=== PATIENT | female | born 1995 | race African-American/Black ===

== ENCOUNTER 2016-05-05 20:40 | Emergency (ER) | payer MEDICAID ==
[2016-05-05] MEDS ORDERED: HYDROcod/ACETAM 5/325 MG TABLET PO STA (22:41)
[2016-05-05] MEDS ORDERED: HYDROcod/ACETAM 5/325 MG TABLET ONE (23:00)
[2016-05-06] MEDS ORDERED: HYDROcod/ACETAM 5/325 MG TABLET PO STA (01:25)
[2016-05-06] MEDS ORDERED: HYDROcod/ACETAM 5/325 MG TABLET ONE (01:27)
== END 2016-05-06 01:44 | disposition home or self-care (01) ==
DX: R10.2 Pelvic and perineal pain (principal)
CPT/HCPCS: 76830; 76856; 81001; 81025; 93976; 99283; 99284; A9270

== ENCOUNTER 2016-06-30 13:45 | Outpatient (CLI) | payer MEDICAID | END 2016-06-30 14:00 | disposition home or self-care (01) | DX: Z13.9 Encounter for screening, unspecified (principal) ==

== ENCOUNTER 2016-06-30 14:51 | Outpatient (CLI) | payer MEDICAID | END 2016-06-30 14:52 | disposition home or self-care (01) | DX: Z13.9 Encounter for screening, unspecified (principal) ==

== ENCOUNTER 2016-06-30 20:49 | Outpatient (CLI) | payer MEDICAID | END 2016-06-30 20:50 | disposition EMS.NT | DX: Z03.89 Encounter for observation for other suspected diseases and conditions ruled out (principal); Y04.8XXA Assault by other bodily force, initial encounter ==

== ENCOUNTER 2016-07-30 12:19 | Emergency (ER) | payer MEDICAID ==
[2016-07-30] MEDS ORDERED: KETOROLAC 60 MG/2 ML VIAL IVP STA (13:01)
[2016-07-30] MEDS ORDERED: ONDANSETRON 4 MG/2 ML VIAL IVP STA (13:01)
[2016-07-30] MEDS ORDERED: KETOROLAC 30 MG/ML VIAL ONE (13:06)
[2016-07-30] MEDS ORDERED: ONDANSETRON 4 MG/2 ML VIAL ONE (13:06)
== END 2016-07-30 13:54 | disposition home or self-care (01) ==
DX: N92.0 Excessive and frequent menstruation with regular cycle (principal); R03.0 Elevated blood-pressure reading, without diagnosis of hypertension

== ENCOUNTER 2016-08-13 09:37 | Outpatient (CLI) | payer MEDICAID ==
--- NOTE | 2016-08-13 14:46 | Ultrasound Report ---
PELVIC ULTRASOUND: 08/13/2016 CLINICAL HISTORY: This is a 21-year-old female who has extensive vaginal bleeding. COMPARISON: 05/05/2016. TECHNIQUE: Transabdominal pelvic ultrasound performed for global evaluation. Transvaginal pelvic ultr asound performed for detailed evaluation. Real-time scanning performed and static images obtained. FINDINGS: The uterus measures 9.1 cm by 3.5 cm by 5.1 cm for a volume of 84.9 cubic centimeters. The endometrial cavity has a diameter of 6.7 mm. It appears normal on ultrasound. The uterus shows no significant abnormality. The right ovary measures 2.1 cm by 2.8 cm by 2.2 cm. The volume is 9.34 cubic centimeters. Within the right ovary, is an 1.6 cm by 1.2 cm by 2.3 cm mildly complex mass that may represent a corpus luteum cyst considering the adjacent ring of vascularity. The left ovary measures 3 cm by 2.4 cm by 2 cm for a volume of 7.5 cubic centimeters. Within the left ovary, is a small cyst measuring 1 cm by 0.7 cm by 0.9 cm. As compared to preceding exam dated 04/25/2016, no significant change is noted. IMPRESSION: 1. NORMAL UTERUS INCLUDING THE CENTRAL INTRAUTERINE CAVITY. 2. RIGHT OVARY DEMONSTRATES A SMALL COMPLEX CYST MEASURING 1.6 CM BY 1.2 CM BY 2.3 CM. THIS MAY A DEG ENERATING CORPUS LUTEUM CYST OR A DOMINANT FOLLICLE. 3. AN 1 CM BY 0.7 CM BY 0.9 CM BENIGN SIMPLE CYST IS NOTED IN THE LEFT OVARY. JOB #: [id number] EXT JOB #:[id number]
== END 2016-08-13 09:38 | disposition home or self-care (01) ==
LOC: DI 09:37
PROVIDERS: ATTEND Obstetrics & Gynecology
DX: N92.0 Excessive and frequent menstruation with regular cycle (principal); N83.291 Other ovarian cyst, right side; N83.292 Other ovarian cyst, left side
CPT/HCPCS: 76830; 76856

== ENCOUNTER 2016-08-27 10:23 | Emergency (ER) | payer MEDICAID ==
[2016-08-27 11:02] LABS: BILIRUBIN,URINE NEGATIVE (NEGATIVE); PH,URINE 6.5 PH (5.0-7.5)
--- NOTE | 2016-08-27 11:06 | ED Physician Documentation ---
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 Miller. She did not start on control and she had a + test this past week. This morning she developed spotting and back pain. Review of Systems Constitutional: denies: Fever, Chills Eyes: denies: Decreased vision Ears: denies: Ear pain Nose: denies: Congestion Throat: denies: Sore throat Respiratory: denies: Cough GI: reports: Nausea. denies: Abdominal Pain : denies: Dysuria, Frequency Skin: denies: Rash Musculoskeletal: reports: Back pain. denies: Neck pain PD PAST MEDICAL HISTORY - Past Medical History Respiratory: Asthma Musculoskeletal: Chronic back pain - Past Surgical History Past Surgical History: Yes /[employer]IP'[employer]OT: Other HEENT: Tonsil/Adenoidectomy - Present Medications Home Medications: Ambulatory Orders Medication Instructions Recorded Confirmed Estradiol Valerate/Dienogest 1 each PO BID #28 tablet 07/30/16 [Natazia 28 Tablet] Ibuprofen [Motrin] 800 mg PO Q8H PRN #30 tablet 07/30/16 Ondansetron HCl [Zofran] 4 mg PO Q6H PRN #10 tablet 07/30/16 - Allergies Allergies/Adverse Reactions: Allergies Allergy/AdvReac Type Severity Reaction Status Date / Time tramadol Allergy Intermediate Respiratory Verified 05/05/16 20:46 avocado [Avocado] Allergy Itching Verified 05/05/16 20:46 hydromorphone HCl * AdvReac made pt Verified 05/05/16 20:46 [From Dilaudid] not feel right - Social History Does the pt smoke?: No Smoking Status: Never smoker Does the pt drink ETOH?: No Does the pt have substance abuse?: No - Immunizations Immunizations are current?: Yes - POLST Patient has POLST: No PD ED PE NORMAL - Vitals Vital signs reviewed: Yes (hypertensive) - General General: Alert and oriented X 3, No acute distress, Well developed/nourished - HEENT HEENT: Atraumatic, PERRL - Respiratory Respiratory: No respiratory distress - Abdomen Abdomen: Soft, Non tender - Back Back: No CVA TTP, No spinal TTP - Derm Derm: Normal color, Warm and dry - Extremities Extremities: No deformity, No edema - Neuro Neuro: No motor deficit, No sensory deficit - Psych Psych: Normal mood, Normal affect Results - Vitals Vitals: Vital Signs - 24 hr 08/27/16 08/27/16 08/27/16 10:30 14:02 14:48 Temperature 36.6 C 36.6 C 36.6 C Heart Rate 92 64 66 Respiratory 16 18 18 Rate Blood Pressure 142/94 H 133/71 H 128/72 O2 Saturation 100 100 100 Oxygen O2 Source Room air - Labs Labs: Laboratory Tests 08/27/16 08/27/16 10:37 11:25 HCG, Quant 44.87 Urine Color YELLOW Urine Clarity CLEAR Urine pH 6.5 Ur Specific [place] 1.015 Urine Protein NEGATIVE Urine Glucose (UA) NEGATIVE Urine Ketones NEGATIVE Urine Occult Blood NEGATIVE Urine Nitrite NEGATIVE Urine Bilirubin NEGATIVE Urine Urobilinogen 0.2 (NORMAL) Ur Leukocyte Esterase NEGATIVE Ur Microscopic Review NOT INDICATED Urine Culture Comments NOT INDICATED Urine HCG, Qual POSITIVE - Rads (name of study) pelvic ultrasound Radiology: Prelim report reviewed (Impression: Normal pelvic ultrasound no IUP or extrauterine gestations seen no free fluid.), EMP read indepedently, See rad report Procedures - Bedside sono Bedside sono by EMP: with the use of bedside ultrasound there is no visualized IUP. PD MEDICAL DECISION MAKING - ED course Complexity details: reviewed results, re-evaluated patient, considered differential, d/w patient ED course: 21 y/o female with early has no visible IUP with a quant of 44.5 and this is expected. She will follow up with Dr. Miller in 2 days as planned. Departure - Departure Disposition: 01 Home, Self Care Clinical Impression: Early stage of Instructions: ED Abdominal Pain Rule Out Ectopic Follow-Up: Nancy Miller DO [Provider Admit Priv/Credential] - Comments: Today in the ED we were not able to see a gestational sac. You will need a repeat blood test in 2 days and follow up ultrasound eventually. Follow up with Dr. Miller. Today in the Emergency Department your blood pressure was elevated. This can happen from the stress of the visit itself, from a current illness or circumstance or from uncontrolled hypertension. If you take blood pressure medications take your usual mediations, have your blood pressure re-checked in an appropriate setting and follow up any elevation with your primary care doctor. Discharge Date/Time: 08/27/16 14:48
[2016-08-27 11:07] LABS: HCG UR QUAL POSITIVE; UA CHARGE (STRIP ONLY) YES; UR CULTURE IF IND NOT INDICATED
--- NOTE | 2016-08-27 13:07 | Ultrasound Report ---
REVISED: THIS REPORT WAS ORIGINALLY SIGNED ON 08/28/2016 @ 0857. ORDERS LINKED ON 10/13/16. FIRST TRIMESTER OB ULTRASOUND WITH TRANSVAGINAL: 08/27/2016 CLINICAL INDICATION: Early , bleeding, back pain. TECHNIQUE: Transabdominal pelvic ultrasound performed for global evaluation. Transvaginal pelvic ultrasound performed for detailed evaluation. Real-time scanning performed and static images obtained. FINDINGS: The uterus is anteverted, measuring 7.8 x 4.8 x 4.3 cm. The endometrial echo complex measures 5 mm. No gestational sac is identified. No focal myometrial lesion is seen. The right ovary measures 2.2 x 2.0 x 1.9 cm, and demonstrates a 1.3 cm possible corpus luteum or hemorrhagic cyst. The left ovary measures 2.8 x 1.9 x 1.4 cm, and appears unremarkable. No free fluid is present. IMPRESSION: NO EVIDENCE OF INTRAUTERINE OR EXTRAUTERINE GESTATION. RECOMMENDATION: Followup serial quantitative beta hCG, and re-scan in 2-3 weeks for viability if clinically warranted. JOB #: [id number] EXT JOB #: [id number] RADAMES
[2016-08-27 14:50] VITALS: BP 128/72
== END 2016-08-27 14:48 | disposition home or self-care (01) ==
LOC: ED 10:23
DX: Z33.1 Pregnant state, incidental (principal); I10 Essential (primary) hypertension
CPT/HCPCS: 36415; 76801; 76817; 81001; 81003; 81025; 84702; 87086; 99283; 99284

== ENCOUNTER 2016-08-28 11:32 | Emergency (ER) | payer MEDICAID ==
--- NOTE | 2016-08-28 12:15 | ED Physician Documentation ---
PD HPI FEMALE - Stated complaint Stated Complaint: FEMALE - Chief complaint Chief Complaint: General - History obtained from History obtained from: Patient - History of Present Illness Timing - onset: Yesterday (she had some cramping and spotting yeserda, and seen in ED with quant 44 and U/S not showing IUP nor extrauterine either. Was to get repeat quant in 3 days, but started with this brisk vaginal bleeding this mornign.) Timing - details: Abrupt onset Associated symptoms: Abdominal pain, Vaginal bleeding. 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: P Similar symptoms before: Has not had sx before Recently seen: Emergency Dept (yesterday due to spotting vag bleeding) Review of Systems Constitutional: denies: Fever, Chills GI: denies: Nausea, Vomiting, Diarrhea : reports: Frequency Skin: denies: Rash, Lesions Musculoskeletal: denies: Back pain Neurologic: denies: Generalized weakness, Near syncope PD PAST MEDICAL HISTORY - Past Medical History Past Medical History: Yes Respiratory: Asthma Musculoskeletal: Chronic back pain - Past Surgical History 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 HEENT: Tonsil/Adenoidectomy - Present Medications Home Medications: Ambulatory Orders Medication Instructions Recorded Confirmed Estradiol Valerate/Dienogest 1 each PO BID #28 tablet 07/30/16 [Natazia 28 Tablet] Ibuprofen [Motrin] 800 mg PO Q8H PRN #30 tablet 07/30/16 Ondansetron HCl [Zofran] 4 mg PO Q6H PRN #10 tablet 07/30/16 - Allergies Allergies/Adverse Reactions: Allergies Allergy/AdvReac Type Severity Reaction Status Date / Time tramadol Allergy Intermediate Respiratory Verified 05/05/16 20:46 avocado [Avocado] Allergy Itching Verified 05/05/16 20:46 hydromorphone HCl * AdvReac made pt Verified 05/05/16 20:46 [From Dilaudid] not feel right - Social History Does the pt smoke?: No Smoking Status: Never smoker Does the pt drink ETOH?: No Does the pt have substance abuse?: No - Immunizations Immunizations are current?: Yes - POLST Patient has POLST: No PD ED PE NORMAL - Vitals Vital signs reviewed: Yes - General General: Alert and oriented X 3, No acute distress, Well developed/nourished - HEENT HEENT: Moist mucous membranes - Cardiac Cardiac: RRR, No murmur - Respiratory Respiratory: Clear bilaterally - Abdomen Abdomen: Normal bowel sounds, Soft, Non tender, Non distended - Female Female : Other (small dark blood in vault with clots. Cervix without obvious dilitation. ) Results - Vitals Vitals: Vital Signs - 24 hr 08/28/16 08/28/16 08/28/16 11:52 14:30 14:33 Temperature 36.6 C 36.8 C 36.7 C Heart Rate 70 74 67 Respiratory 18 16 18 Rate Blood Pressure 118/81 H 119/60 118/80 O2 Saturation 99 98 100 Oxygen O2 Source Room air - Labs Labs: Laboratory Tests 08/28/16 08/28/16 13:55 13:55 WBC 7.0 RBC 3.87 L Hgb 12.3 Hct 35.9 L MCV 92.9 MCH 31.7 H MCHC 34.2 RDW 13.1 Plt Count 194 MPV 9.0 Neut # 3.8 Lymph # 2.6 [place] # 0.5 Eos # 0.0 Baso # 0.1 Absolute Nucleated RBC 0.00 Nucleated RBCs 0.0 Blood Type A POSITIVE PD MEDICAL DECISION MAKING - ED course Complexity details: reviewed old records (just had U/S and quant yesterday, so did not feel that repeating those would give useful results, as did not see IUP yesterday. Dr. Hernandez was comfortable with this approach. ), reviewed results, considered differential (the degree of bleeding would suggest miscarriage rather than threatened. Still some bleeding but not too much (only 1-2 pads while in ED). CBC is good. Power blood type. Vitals are good. She is ambulatory without lightheadedness. Talked with Dr. Hernandez and will see patient in office tomorrow. ), d/w patient Departure - Departure Disposition: 01 Home, Self Care Clinical Impression: Incomplete miscarriage with blood clot Condition: Stable Record reviewed to determine appropriate education?: Yes Instructions: ED Miscarriage Incom Follow-Up: Garfield Hernandez MD [Provider Admit Priv/Credential] - Comments: Drink lots of fluids. Presume this is a miscarriage in process. Follow up Dr. Hernandez tomorrow, call for an appt time. Your blood count is okay right now, so your body should be able to tolerate some bleeding, however return to ED if the bleeding increases, you feel lightheaded or dizzy, have significant cramps or bleeding, or fever. Discharge Date/Time: 08/28/16 14:30
[2016-08-28 14:15] LABS: BASOPHILS # (AUTO) 0.1 10^3/uL (0.0-0.1); BASOPHILS % (AUTO) 0.8 %; EOSINOPHILS % (AUTO) 0.7 %; HCT - HEMATOCRIT 35.9 % (37.0-47.0); HGB - HEMOGLOBIN 12.3 g/dL (12.0-16.0); LYMPHOCYTES # (AUTO) 2.6 10^3/uL (1.5-3.5); LYMPHOCYTES % (AUTO) 37.8 %; MEAN CORPUSCULAR HEMOGLOBIN 31.7 pg (27.0-31.0); MEAN CORPUSCULAR HGB CONC 34.2 g/dL (32.0-36.0); MEAN CORPUSCULAR VOLUME 92.9 fL (81.0-99.0); MONOCYTES # (AUTO) 0.5 10^3/uL (0.0-1.0); MONOCYTES % (AUTO) 6.6 %; NEUTROPHILS # (AUTO) 3.8 10^3/uL (1.5-6.6); NEUTROPHILS % (AUTO) 54.1 %; RED BLOOD COUNT 3.87 10^6/uL (4.20-5.40); RED CELL DISTRIBUTION WIDTH 13.1 % (12.0-15.0)
[2016-08-28 14:34] VITALS: BP 118/80
== END 2016-08-28 14:30 | disposition home or self-care (01) ==
LOC: ED 11:32
DX: O03.4 Incomplete spontaneous abortion without complication (principal); J45.909 Unspecified asthma, uncomplicated
CPT/HCPCS: 36415; 85025; 86900; 86901; 99283; 99284

== ENCOUNTER 2016-08-29 11:05 | Outpatient (CLI) | payer MEDICAID | END 2016-08-29 11:06 | disposition home or self-care (01) | LOC: LAB 11:05 | PROVIDERS: ATTEND Obstetrics & Gynecology | DX: O03.4 Incomplete spontaneous abortion without complication (principal) | CPT/HCPCS: 36415; 84702 ==

== ENCOUNTER 2016-12-02 08:00 | Outpatient (CLI) | payer MEDICAID | END 2016-12-02 08:01 | disposition home or self-care (01) | LOC: LAB.R 08:00 | PROVIDERS: ATTEND Obstetrics & Gynecology | DX: R30.0 Dysuria (principal) | CPT/HCPCS: 87086 ==

== ENCOUNTER 2016-12-29 10:52 | Emergency (ER) | payer MEDICAID ==
[2016-12-29 11:02] VITALS: BP 128/82
[2016-12-29 11:15] LABS: BILIRUBIN,URINE NEGATIVE (NEGATIVE)
[2016-12-29 11:16] LABS: UA CHARGE (STRIP ONLY) YES; UR CULTURE IF IND NOT INDICATED
[2016-12-29 11:20] LABS: HCG UR QUAL NEGATIVE
--- NOTE | 2016-12-29 12:41 | ED Physician Documentation ---
PD HPI FEMALE - Stated complaint Stated Complaint: SPOTTING/6WKS - Chief complaint Chief Complaint: Abd Pain - History obtained from History obtained from: Patient - History of Present Illness Timing - onset: Today Timing - duration: Hours Timing - details: Abrupt onset, Still present Associated symptoms: Pelvic pain (cramping), Vaginal bleeding (today with onset darker blood vaginally, some cramps. Had some spotting last week. Concerned as had positive preg test twice over a week ago, so is about 6 weeks by dates.). 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 HEENT: Tonsil/Adenoidectomy - Present Medications Home Medications: Ambulatory Orders Medication Instructions Recorded Confirmed No Known Home Medications [No 12/29/16 12/29/16 Known Home Medications] - Allergies Allergies/Adverse Reactions: Allergies Allergy/AdvReac Type Severity Reaction Status Date / Time tramadol Allergy Intermediate Respiratory Verified 12/29/16 11:02 avocado [Avocado] Allergy Itching Verified 12/29/16 11:02 hydromorphone HCl * AdvReac made pt Verified 12/29/16 11:02 [From Dilaudid] not feel right - Social History Does the pt smoke?: No Smoking Status: Never smoker Does the pt drink ETOH?: No Does the pt have substance abuse?: No - Immunizations Immunizations are current?: Yes - POLST Patient has POLST: No PD ED PE NORMAL - Vitals Vital signs reviewed: Yes - General General: Alert and oriented X 3, No acute distress, Well developed/nourished - Neck Neck: Supple, no meningeal sign, No adenopathy - Cardiac Cardiac: RRR, No murmur - Respiratory Respiratory: Clear bilaterally - Abdomen Abdomen: Normal bowel sounds, Soft, Non tender, Non distended - Female Female : Deferred - Back Back: No CVA TTP - Derm Derm: Normal color, Warm and dry - Extremities Extremities: No deformity, No tenderness to palpate - Neuro Neuro: Alert and oriented X 3, No motor deficit, Normal speech Results - Vitals Vitals: Vital Signs - 24 hr 12/29/16 10:58 Temperature 36.7 C Heart Rate 65 Respiratory 15 Rate Blood Pressure 128/82 H O2 Saturation 100 Oxygen O2 Source Room air - Labs Labs: Laboratory Tests 12/29/16 11:08 Urine Color YELLOW Urine Clarity CLEAR Urine pH 7.0 Ur Specific [place] <=1.005 Urine Protein NEGATIVE Urine Glucose (UA) NEGATIVE Urine Ketones NEGATIVE Urine Occult Blood TRACE-LYSE Urine Nitrite NEGATIVE Urine Bilirubin NEGATIVE Urine Urobilinogen 0.2 (NORMAL) Ur Leukocyte Esterase NEGATIVE Ur Microscopic Review NOT INDICATED Urine Culture Comments NOT INDICATED Urine HCG, Qual NEGATIVE - Rads (name of study) pelvic U/S Radiology: Prelim report reviewed (normal study) PD MEDICAL DECISION MAKING - ED course Complexity details: reviewed results (She had had positive preg test twice about a week ago, so presuming these were true (and no reason to doubt it per se ) then that would mean she had miscarried previously and now has either passed it or previously passed it and is now having menses. ), considered differential , d/w patient Departure - Departure Disposition: 01 Home, Self Care Clinical Impression: Vaginal bleeding, Complete miscarriage Condition: Stable Record reviewed to determine appropriate education?: Yes Instructions: ED Miscarriage Completed Follow-Up: Jeanne Kingsley CLIENT SUPPORT ASSOCIATE [Primary Care Provider] - Comments: Drink lots of fluids. Tylenol or ibuprofen if needed for pains. I would consider some ibuprofen 2-3 times a day for your back and can use a muscle relaxant if needed as well. Regarding the ultrasound, there is normal appearance of the uterus and ovaries. This would mean that there has been a completed miscarriage and presumably the bleeding will stop in the next few days time course and then see if you reset with normal cycles after that. Use barrier contraceptives to avoid . Return if not improved over the next several days or if you have increased pain or significant bleeding. Discharge Date/Time: 12/29/16 14:36
--- NOTE | 2016-12-29 14:25 | Ultrasound Report ---
PELVIC ULTRASOUND: 12/29/2016 CLINICAL INDICATION: Pain, bleeding. TECHNIQUE: Transabdominal pelvic ultrasound performed for global evaluation. Transvaginal pelvic ul trasound performed for detailed evaluation. Real-time scanning performed and static images obtained. FINDINGS: The uterus is anteverted, measuring 9.3 x 4.6 x 3.3 cm. The endometrial echo complex dez ures 5 mm. No focal myometrial lesion is seen. The right ovary is unremarkable, measuring 2.0 x 1.5 x 1.2 cm. The left ovary measures 2.6 x 2.0 x 1.4 cm, and contains a 1-cm follicle. No free fluid is present. IMPRESSION: NORMAL PELVIC ULTRASOUND. JOB #: [id number] EXT JOB #:[id number]
== END 2016-12-29 14:36 | disposition home or self-care (01) ==
LOC: ED 10:52
DX: O03.9 Complete or unspecified spontaneous abortion without complication (principal)
CPT/HCPCS: 76830; 76856; 81001; 81003; 81025; 87086; 93976; 99283; 99284

== ENCOUNTER 2017-08-14 08:00 | Outpatient (CLI) | payer MEDICAID | END 2017-08-14 08:01 | disposition home or self-care (01) | LOC: LAB.R 08:00 | PROVIDERS: ATTEND Obstetrics & Gynecology | DX: R30.0 Dysuria (principal) | CPT/HCPCS: 87086 ==

== ENCOUNTER 2017-08-15 15:30 | Emergency (ER) | payer MEDICAID ==
[2017-08-15 15:45] VITALS: BP 129/70
--- NOTE | 2017-08-15 16:09 | ED Physician Documentation ---
PD HPI BACK PAIN - Stated complaint Stated Complaint: BACK PX - Chief complaint Chief Complaint: Back Pain - History obtained from History obtained from: Patient - History of Present Illness Timing - onset: How many weeks ago (2) Timing - duration: Weeks (2) Timing - details: Gradual onset, Still present, Waxing and waning Location: Lower Quality: Pain, Spasm, Similar to prior episodes Associated symptoms: No: Fever, Weakness, Numbness, Incontinent of urine, Unable to urinate, Hematuria, Incontinent of stool Improves with: Rest, Meds, Other (heating pad) Worsened by: Movement, Lifting Contributing factors: Other (taking care of 2 y/o and recent travel to [place]) Similar symptoms before: Diagnosis (sciatica) Recently seen: Clinic - Additional information Additional information: 22-year-old female has had some low back pain for the past 2 weeks. This pain usually goes away within 1-2 days. She has had the pain persistent now for this past 2 weeks and she is using a heating pack daily. She also states that she is getting some relief with the use of ibuprofen and Tylenol. She has had some vaginal itching and she has started some Monistat and she continues to have some symptoms with a [id number] discharge. She did go into see Dr. Husain this week about some transient urinary symptoms she had and the urine has been resulted that is negative. Review of Systems Constitutional: denies: Fever, Chills, Myalgias Eyes: denies: Decreased vision Ears: denies: Ear pain Nose: denies: Congestion Throat: denies: Sore throat Cardiac: denies: Palpitations Respiratory: denies: Dyspnea, Cough GI: denies: Abdominal Pain, Nausea, Vomiting, Constipation, Diarrhea : reports: Discharge, Other (vaginal itching). denies: Dysuria, Frequency Musculoskeletal: reports: Back pain. 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: Other HEENT: Tonsil/Adenoidectomy - Present Medications Home Medications: Ambulatory Orders Medication Instructions Recorded Confirmed No Known Home Medications [No 12/29/16 12/29/16 Known Home Medications] - Allergies Allergies/Adverse Reactions: Allergies Allergy/AdvReac Type Severity Reaction Status Date / Time tramadol Allergy Intermediate Respiratory Verified 08/15/17 15:45 avocado [Avocado] Allergy Itching Verified 08/15/17 15:45 hydromorphone HCl * AdvReac made pt Verified 08/15/17 15:45 [From Dilaudid] not feel right - Social History Does the pt smoke?: No Smoking Status: Never smoker Does the pt drink ETOH?: No Does the pt have substance abuse?: No - Immunizations Immunizations are current?: Yes - POLST Patient has POLST: No PD ED PE NORMAL - Vitals Vital signs reviewed: Yes (normal ) - General General: Alert and oriented X 3, No acute distress, Well developed/nourished - HEENT HEENT: Atraumatic, PERRL, EOMI - Neck Neck: Supple, no meningeal sign - Respiratory Respiratory: No respiratory distress - Back Back: No CVA TTP, No spinal TTP, Other (There is mild tenderness to the lower lumbar spine and not into the sciatic notch. There is no midline tenderness and no CVA tenderness. ) - Derm Derm: Normal color, Warm and dry, No rash - Extremities Extremities: No deformity, No edema - Neuro Neuro: No motor deficit, No sensory deficit Eye Opening: Spontaneous Motor: Obeys Commands Verbal: Oriented GCS Score: 15 - Psych Psych: Normal mood, Normal affect Results - Vitals Vitals: Vital Signs - 24 hr 08/15/17 15:41 Temperature 36.7 C Heart Rate 62 Respiratory 18 Rate Blood Pressure 129/70 O2 Saturation 98 Oxygen O2 Source Room air PD MEDICAL DECISION MAKING - ED course Complexity details: considered differential, d/w patient ED course: 22-year-old female with low back pain that has not improved in the usual timeframe has been using a heating pack daily. She is instructed to discontinue the use of the heating pack and will provide a single dose of dexamethasone here. Today she appears to be using her back normally she does not appear stiff at all when she gets up to walk and when she goes to pascale after her young child. She is able to lift him up and put him onto the bed without pain. She also is complaining of some vaginal itching that is not resolved with use of Monistat. She has had a recent urine processed and there has been resulted and is negative. I discussed with the patient empiric treatment of yeast with Diflucan and follow-up with her EXERCISE PHYSIOLOGY PROFESSOR doctor for full examination she does not have resolution of her symptoms. She is in agreement with this strategy and had follow up available. Departure - Departure Disposition: 01 Home, Self Care Clinical Impression: Lumbar paraspinal muscle spasm, Lou vaginitis Condition: Stable Instructions: ED Spasm Back No Trauma, ED Vaginal Infec Fungal Lou Follow-Up: Nancy Miller, [Provider Admit Priv/Credential] -
[2017-08-15] MEDS ORDERED: DEXAMETHASONE 10 MG/ML VIAL PO STA (16:15)
[2017-08-15] MEDS ORDERED: FLUCONAZOLE 100 MG TABLET PO STA (16:15)
== END 2017-08-15 16:27 | disposition home or self-care (01) ==
LOC: ED 15:30
DX: M62.830 Muscle spasm of back (principal); B37.3 Candidiasis of vulva and vagina
CPT/HCPCS: 99282; 99283; A9270

== ENCOUNTER 2018-01-09 21:35 | Emergency (ER) | payer MEDICAID ==
[2018-01-09] MEDS ORDERED: SODIUM CHLORIDE 0.9% 1,000 ML IV ONE (22:03)
[2018-01-09 22:11] LABS: BASOPHILS # (AUTO) 0.1 10^3/uL (0.0-0.1); BASOPHILS % (AUTO) 0.8 %; EOSINOPHILS # (AUTO) 0.1 10^3/uL (0.0-0.7); EOSINOPHILS % (AUTO) 0.6 %; HGB - HEMOGLOBIN 12.9 g/dL (12.0-16.0); LYMPHOCYTES # (AUTO) 2.7 10^3/uL (1.5-3.5); LYMPHOCYTES % (AUTO) 27.8 %; MEAN CORPUSCULAR HEMOGLOBIN 32.1 pg (27.0-31.0); MEAN CORPUSCULAR HGB CONC 35.1 g/dL (32.0-36.0); MEAN CORPUSCULAR VOLUME 91.4 fL (81.0-99.0); MEAN PLATELET VOLUME 8.5 fL (7.9-10.8); MONOCYTES # (AUTO) 0.7 10^3/uL (0.0-1.0); MONOCYTES % (AUTO) 7.1 %; NEUTROPHILS # (AUTO) 6.1 10^3/uL (1.5-6.6); NEUTROPHILS % (AUTO) 63.7 %; PLT - PLATELET COUNT 214 10^3/uL (130-450); RED BLOOD COUNT 4.03 10^6/uL (4.20-5.40); WHITE BLOOD COUNT 9.6 x10^3/uL (4.8-10.8)
[2018-01-09] MEDS ORDERED: ACETAMINOPHEN 500 MG TABLET PO STA (22:18)
[2018-01-09] MEDS ORDERED: METOCLOPRAMIDE 10 MG/2 ML VIAL IVP STA (22:18)
[2018-01-09 22:23] LABS: ALBUMIN 3.9 g/dL (3.2-5.5); ALBUMIN/GLOBULIN RATIO 1.1 (1.0-2.2); BILIRUBIN,TOTAL 0.4 mg/dL (0.2-1.0); CALCIUM 9.5 mg/dL (8.5-10.3); CREATININE 0.6 mg/dL (0.4-1.0); TOTAL PROTEIN 7.3 g/dL (6.7-8.2)
[2018-01-09 22:40] LABS: BILIRUBIN,URINE NEGATIVE (NEGATIVE); GLUCOSE, URINE (UA) NEGATIVE (NEGATIVE); KETONES,URINE (UA) NEGATIVE (NEGATIVE); LEUKOCYTE ESTERASE, URINE NEGATIVE (NEGATIVE); NITRITE,URINE NEGATIVE (NEGATIVE); OCCULT BLOOD,URINE NEGATIVE (NEGATIVE); PROTEIN,URINE NEGATIVE (NEGATIVE); UROBILINOGEN,URINE 0.2 (NORMAL) E.U./dL (NORMAL)
[2018-01-09 22:42] LABS: CLARITY,URINE CLEAR (CLEAR)
--- NOTE | 2018-01-09 23:02 | ED Physician Documentation ---
History of Present Illness - Stated complaint Stated Complaint: DIZZINESS/12WK OB - Chief complaint Chief Complaint: Neuro - Additonal information Additional information: 22-year-old female presents the emergency department with an episode of lightheadedness. The patient flew back to the area today and one were landing the patient became very lightheaded and dizzy. After eating and drinking the patient symptoms had improved. The patient drove herself from the airport roughly 2 hours and then came to our emergency department for evaluation. Presently the patient is denying any active symptoms. The patient denies chest pain, palpitations, headache, vaginal bleeding or abdominal cramping. Symptoms were described as moderate. Presently no active symptoms. No other associated symptoms. 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 Musculoskeletal: Chronic back pain - Past Surgical History Past Surgical History: Yes General: Cholecystectomy /REDUCING MACHINE OPERATOR: Other HEENT: Tonsil/Adenoidectomy - Present Medications Home Medications: Ambulatory Orders Medication Instructions Recorded Confirmed No Known Home Medications 12/29/16 01/09/18 - Allergies Allergies/Adverse Reactions: Allergies Allergy/AdvReac Type Severity Reaction Status Date / Time tramadol Allergy Intermediate Respiratory Verified 01/09/18 21:48 avocado [Avocado] Allergy Itching Verified 01/09/18 21:48 hydromorphone HCl * AdvReac made pt Verified 01/09/18 21:48 [From Dilaudid] not feel right - Social History Does the pt smoke?: No Smoking Status: Never smoker Does the pt drink ETOH?: No Does the pt have substance abuse?: No - Immunizations Immunizations are current?: Yes - POLST Patient has POLST: No PD ED PE NORMAL - General General: Alert and oriented X 3, No acute distress - HEENT HEENT: Atraumatic, PERRL, EOMI, Ears normal - Neck Neck: Supple, no meningeal sign - Cardiac Cardiac: RRR, Strong equal pulses - Respiratory Respiratory: No respiratory distress - Abdomen Abdomen: Soft, Non tender, Non distended - Derm Derm: Normal color - Extremities Extremities: No deformity - Neuro Neuro: Alert and oriented X 3, Normal speech - Psych Psych: Normal mood Results - Vitals Vitals: Vital Signs - 24 hr 01/09/18 01/09/18 21:43 22:30 Temperature 36.8 C Heart Rate 94 90 Respiratory 16 18 Rate Blood Pressure 134/85 H 119/70 O2 Saturation 100 100 Oxygen O2 Source Room air - EKG (time done) No standard instances Rhythm: NSR [place]: Normal Intervals: Normal NC QRS: Normal Ischemia: Normal ST segments - Labs Labs: Laboratory Tests 01/09/18 01/09/18 01/09/18 21:59 22:00 22:00 WBC 9.6 RBC 4.03 L Hgb 12.9 Hct 36.9 L MCV 91.4 MCH 32.1 H MCHC 35.1 RDW 15.0 Plt Count 214 MPV 8.5 Neut # (Auto) 6.1 Lymph # (Auto) 2.7 [place] # (Auto) 0.7 Eos # (Auto) 0.1 Baso # (Auto) 0.1 Absolute Nucleated RBC 0.01 Nucleated RBC % 0.1 Sodium 135 Potassium 3.7 Chloride 103 Carbon Dioxide 23 Anion Gap 9.0 BUN 13 Creatinine 0.6 Estimated GFR (MDRD) 149 Glucose 93 POC Whole Bld Glucose 96 Calcium 9.5 Total Bilirubin 0.4 AST 17 ALT 11 Alkaline Phosphatase 70 Total Protein 7.3 Albumin 3.9 Globulin 3.4 Albumin/Globulin Ratio 1.1 Lipase 26 HCG, Quant Urine Color Urine Clarity Urine pH Ur Specific [place] Urine Protein Urine Glucose (UA) Urine Ketones Urine Occult Blood Urine Nitrite Urine Bilirubin Urine Urobilinogen Ur Leukocyte Esterase Ur Microscopic Review Urine Culture Comments 01/09/18 01/09/18 22:00 22:33 WBC RBC Hgb Hct MCV MCH MCHC RDW Plt Count MPV Neut # (Auto) Lymph # (Auto) [place] # (Auto) Eos # (Auto) Baso # (Auto) Absolute Nucleated RBC Nucleated RBC % Sodium Potassium Chloride Carbon Dioxide Anion Gap BUN Creatinine Estimated GFR (MDRD) Glucose POC Whole Bld Glucose Calcium Total Bilirubin AST ALT Alkaline Phosphatase Total Protein Albumin Globulin Albumin/Globulin Ratio Lipase HCG, Quant > 702056.00 Urine Color YELLOW Urine Clarity CLEAR Urine pH 6.0 Ur Specific [place] >=1.030 H Urine Protein NEGATIVE Urine Glucose (UA) NEGATIVE Urine Ketones NEGATIVE Urine Occult Blood NEGATIVE Urine Nitrite NEGATIVE Urine Bilirubin NEGATIVE Urine Urobilinogen 0.2 (NORMAL) Ur Leukocyte Esterase NEGATIVE Ur Microscopic Review NOT INDICATED Urine Culture Comments NOT INDICATED PD MEDICAL DECISION MAKING - ED course ED course: On reevaluation the patient is resting comfortably and appears to be in no significant distress. The patient's workup does not reveal any significant abnormality and the patient appears appropriate for discharge and ongoing outpatient management. I discussed with her the findings and plan and she understands and agrees. I discussed warning signs and recommended returning to the emergency department immediately for any worsening or any concerns. Departure - Departure Disposition: 01 Home, Self Care Clinical Impression: Dizziness Qualifiers: Weeks of gestation: unspecified Qualified Code(s): Z34.90 - Encounter for supervision of normal , unspecified, unspecified trimester Condition: Good Instructions: ED Dizziness [facility]O Follow-Up: Jeanne Kingsley ARNP [Primary Care Provider] - Comments: Please follow-up with your PHYSICIAN SURGEON and primary care this week for recheck. Please return to the emergency department immediately for worsening symptoms or any concerns per
[2018-01-09 23:10] VITALS: BP 118/67
== END 2018-01-09 23:08 | disposition home or self-care (01) ==
LOC: ED 21:35
DX: R42 Dizziness and giddiness (principal); Z34.90 Encounter for supervision of normal pregnancy, unspecified, unspecified trimester; R94.31 Abnormal electrocardiogram [ECG] [EKG]
CPT/HCPCS: 36415; 80053; 81003; 83690; 84702; 85025; 93005; 96361; 96374; 99283; 99284; A9270; J2765; 81001; 87086

== ENCOUNTER 2018-07-17 18:00 | Emergency (ER) | payer MEDICAID ==
[2018-07-17] MEDS ORDERED: oxyCODONE 5 MG TABLET PO STA (18:24)
--- NOTE | 2018-07-17 18:30 | ED Physician Documentation ---
PD HPI ABD PAIN - Stated complaint Stated Complaint: ABD PX POST - Chief complaint Chief Complaint: Abd Pain - History obtained from History obtained from: Patient - History of Present Illness Timing - onset: Today (This is a 23-year-old G2, P2 is 5 days . She delivered at [facility]. It sounds like it was a fairly precipitous delivery, she arrived at the hospital at 9 PM and delivered at midnight. Her membranes were artificially ruptured just prior to delivery.She did not require any suturing. She has increased pelvic pain today. No fevers. She has had an increase in bloody discharge without foul smell.) Review of Systems Constitutional: denies: Fever, Chills Respiratory: denies: Dyspnea, Cough GI: reports: Abdominal Pain. 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 Musculoskeletal: Chronic back pain - Past Surgical History Past Surgical History: Yes General: Cholecystectomy /MANAGEMENT LIAISON: Other HEENT: Tonsil/Adenoidectomy - Present Medications Home Medications: Ambulatory Orders Medication Instructions Recorded Confirmed Amox/Clav 875/125 [Augmentin] 1 each PO Q12H #20 tablet 07/17/18 Hydrocodone/Acetaminophen 1 - 2 each PO Q6H PRN #14 tablet 07/17/18 [Hydrocodon-Acetaminophen 5-325] RX: Albuterol Sulf [Ventolin Hfa 2 puffs INH 1-2XD PRN 07/17/18 07/17/18 Inhaler] - Allergies Allergies/Adverse Reactions: Allergies Allergy/AdvReac Type Severity Reaction Status Date / Time tramadol Allergy Intermediate Respiratory Verified 07/17/18 18:28 avocado [Avocado] Allergy Itching Verified 07/17/18 18:28 hydromorphone HCl * AdvReac made pt Verified 07/17/18 18:28 [From Dilaudid] not feel right - Social History Does the pt smoke?: No Smoking Status: Never smoker Does the pt drink ETOH?: No Does the pt have substance abuse?: No - Immunizations Immunizations are current?: Yes - POLST Patient has POLST: No PD ED PE NORMAL - Vitals Vital signs reviewed: Yes - General General: Alert and oriented X 3, No acute distress - Cardiac Cardiac: RRR, No murmur - Respiratory Respiratory: No respiratory distress, Clear bilaterally - Abdomen Abdomen: Other (Tender to the uterus with potentially a little bit of a boggy uterus, no surgical signs.) - Back Back: No CVA TTP, No spinal TTP - Derm Derm: Normal color, Warm and dry - Extremities Extremities: No edema, No calf tenderness / cord - Neuro Neuro: Alert and oriented X 3, Normal speech Results - Vitals Vitals: Vital Signs - 24 hr 07/17/18 07/17/18 07/17/18 18:22 19:30 20:31 Temperature 36.4 C L 36.8 C 36.8 C Heart Rate 94 116 H 119 H Respiratory 16 20 18 Rate Blood Pressure 119/73 120/78 127/80 O2 Saturation 100 98 100 07/17/18 21:35 Temperature 37.0 C Heart Rate 108 H Respiratory 18 Rate Blood Pressure 120/70 O2 Saturation 99 Oxygen O2 Source Room air - Labs Labs: Laboratory Tests 07/17/18 07/17/18 07/17/18 18:40 18:40 19:55 WBC 12.6 H RBC 3.61 L Hgb 10.1 L Hct 31.3 L MCV 86.7 MCH 28.0 MCHC 32.3 RDW 15.3 H Plt Count 315 MPV 8.0 Neut # (Auto) 10.2 H Lymph # (Auto) 1.8 [place] # (Auto) 0.6 Eos # (Auto) 0.0 Baso # (Auto) 0.1 Absolute Nucleated RBC 0.00 Nucleated RBC % 0.0 Sodium 139 Potassium 3.5 Chloride 107 Carbon Dioxide 23 Anion Gap 9.0 BUN 14 Creatinine 0.5 Estimated GFR (MDRD) 182 Glucose 86 Calcium 8.4 L Total Bilirubin 0.3 AST 25 ALT 22 Alkaline Phosphatase 135 H Total Protein 6.4 L Albumin 2.9 L Globulin 3.5 Albumin/Globulin Ratio 0.8 L Lipase 21 L Urine Color YELLOW Urine Clarity CLEAR Urine pH 6.0 Ur Specific [place] 1.025 Urine Protein TRACE Urine Glucose (UA) NEGATIVE Urine Ketones TRACE Urine Occult Blood MODERATE H Urine Nitrite NEGATIVE Urine Bilirubin NEGATIVE Urine Urobilinogen 0.2 (NORMAL) Ur Leukocyte Esterase NEGATIVE Urine RBC 6-10 H Urine WBC 4-5 Ur Squamous Epith Cells FEW Squamous Urine Bacteria Rare Urine Mucus Few Strands Ur Microscopic Review INDICATED Urine Culture Comments NOT INDICATED - Rads (name of study) Pelvic sono Radiology: EMP read contemporaneously (Small endometrial fluid with a solid avascular component measuring 3.7 x 1.1 x 2.8 cm possibly representing debris or clots.) PD MEDICAL DECISION MAKING - ED course ED course: This is a 23-year-old woman with an increase in pelvic pain on day 5. Endometritis is considered, she is at low risk given the fact that she had AROM just prior to delivery, has no fever, or malodorous lochia. Uterine involution is also a possibility, however her pain is not exacerbated by breast-feeding. After diagnostics were complete the case was discussed with Dr. Hernandez, the on- call TECHNICAL AID. We discussed the results of the ultrasound as well as her CBC and lack of fever. He recommended rectal Cytotec and oral Augmentin and close watchful waiting. Departure - Departure Disposition: 01 Home, Self Care Clinical Impression: Endometritis Condition: Good Record reviewed to determine appropriate education?: Yes Instructions: ED Endometritis Obstetric Prescriptions: Amox/Clav 875/125 [Augmentin] 1 each PO Q12H #20 tablet Hydrocodone/Acetaminophen [Hydrocodon-Acetaminophen 5-325] 1 - 2 each PO Q6H PRN #14 tablet PRN Reason: pain Comments: Follow-up with your light technician on Thursday, call first thing Thursday for an appointment. Return if worse or if you develop a fever. When you go to your obstetrics appointment let them know that we did an ultrasound tonight showing a small amount of fluid within the endometrial cavity with a solid avascular endometrial structure measuring 3.7 x 1.1 x 2.8 cm possibly representing debris or clot. No vascularized retained products of conception were noted. Let your light technician know that we gave you Cytotec rectally here and Augmentin on the advice of our on-call light technician. Also let your light technician know that we did a CBC notable for a white count of 12.6 with 10.2 neutrophils and a hemoglobin of 10.1. We did a CMP and urinalysis that were basically negative except for a small amount of blood in the urine. Discharge Date/Time: 07/17/18 21:41
[2018-07-17 18:59] LABS: BASOPHILS # (AUTO) 0.1 10^3/uL (0.0-0.1); BASOPHILS % (AUTO) 0.4 %; EOSINOPHILS % (AUTO) 0.3 %; HGB - HEMOGLOBIN 10.1 g/dL (12.0-16.0); LYMPHOCYTES # (AUTO) 1.8 10^3/uL (1.5-3.5); MEAN CORPUSCULAR HGB CONC 32.3 g/dL (32.0-36.0); MEAN CORPUSCULAR VOLUME 86.7 fL (81.0-99.0); MONOCYTES # (AUTO) 0.6 10^3/uL (0.0-1.0); MONOCYTES % (AUTO) 4.6 %; NEUTROPHILS # (AUTO) 10.2 10^3/uL (1.5-6.6); NEUTROPHILS % (AUTO) 80.7 %; PLT - PLATELET COUNT 315 10^3/uL (130-450); RED BLOOD COUNT 3.61 10^6/uL (4.20-5.40); RED CELL DISTRIBUTION WIDTH 15.3 % (12.0-15.0); WHITE BLOOD COUNT 12.6 x10^3/uL (4.8-10.8)
[2018-07-17 19:09] LABS: ALBUMIN 2.9 g/dL (3.2-5.5); ALBUMIN/GLOBULIN RATIO 0.8 (1.0-2.2); BILIRUBIN,TOTAL 0.3 mg/dL (0.2-1.0); CALCIUM 8.4 mg/dL (8.5-10.3); CREATININE 0.5 mg/dL (0.4-1.0); TOTAL PROTEIN 6.4 g/dL (6.7-8.2)
[2018-07-17 20:13] LABS: BILIRUBIN,URINE NEGATIVE (NEGATIVE); CLARITY,URINE CLEAR (CLEAR); GLUCOSE, URINE (UA) NEGATIVE (NEGATIVE); KETONES,URINE (UA) TRACE mg/dL (NEGATIVE); LEUKOCYTE ESTERASE, URINE NEGATIVE (NEGATIVE); NITRITE,URINE NEGATIVE (NEGATIVE); OCCULT BLOOD,URINE MODERATE (NEGATIVE); PROTEIN,URINE TRACE mg/dL (NEGATIVE); UROBILINOGEN,URINE 0.2 (NORMAL) E.U./dL (NORMAL)
[2018-07-17 20:18] LABS: BACTERIA,URINE Rare /HPF (None Seen); MUCUS,URINE Few Strands; SQUAMOUS EPITHELIAL CELL,UR FEW Squamous (<= Few)
[2018-07-17] MEDS ORDERED: miSOPROStol 200 MCG TABLET PR ONE (20:19)
[2018-07-17] MEDS ORDERED: AMOX/CLAV 875 MG/125 MG TABLET PO STA (20:19)
--- NOTE | 2018-07-17 20:21 | Ultrasound Report ---
Reason: Post pelvic pain Procedure Date: 07/17/2018 Accession Number: [id number] / [id number] Procedure: US - Pelvic Complete CPT Code: FULL RESULT: EXAM: PELVIC ULTRASOUND EXAM DATE: 07/17/2018 07:50 PM. CLINICAL HISTORY: Post pelvic pain. COMPARISON: PEL NON OB W/TV DOP LTD 12/29/2016 1:24 PM. TECHNIQUE: Realtime transabdominal pelvic scan performed to identify the uterus and adnexa and as an overview of other pelvic structures, with static image documentation. FINDINGS: Uterus: 12.6 x 7.8 x 10.6 cm, volume 543 cc. Anteverted position. No focal uterine mass. The myometrium is moderately diffusely heterogeneous. Masses: None. Endometrium: Endometrial stripe measures 17.5 mm in thickness. There is small fluid within the endometrial cavity. There is a heterogeneous solid-appearing avascular structure in the lower uterine segment measuring 3.7 x 1.1 x 2.8 cm. No hypervascular mass. Cervix: Unremarkable. Right Ovary: 3.6 x 1.5 x 3.3 cm, volume 9.3 cc. Normal echotexture and blood flow. Left Ovary: Not seen Free Fluid: None. Other: None. IMPRESSION: 1. There is small fluid within the endometrial cavity with a solid avascular endometrial structure measuring 3.7 x 1.1 x 2.8 cm possibly representing debris or clot. No vascularized retained products of conception. uterus. RADIA
[2018-07-17] MEDS ORDERED: KETOROLAC 60 MG/2 ML VIAL IM STA (20:28)
[2018-07-17] MEDS ORDERED: miSOPROStol 200 MCG TABLET ONE (21:02)
[2018-07-17 21:39] VITALS: BP 120/70
== END 2018-07-17 21:41 | disposition home or self-care (01) ==
LOC: ED 18:00
DX: O86.12 Endometritis following delivery (principal)
CPT/HCPCS: 36415; 76856; 80053; 81001; 83690; 85025; 96372; 99283; A9270; 81003; 87086

== ENCOUNTER 2018-12-02 11:26 | Emergency (ER) | payer MEDICAID ==
[2018-12-02 12:03] LABS: BASOPHILS % (AUTO) 0.5 %; EOSINOPHILS # (AUTO) 0.3 10^3/uL (0.0-0.7); EOSINOPHILS % (AUTO) 3.1 %; HGB - HEMOGLOBIN 12.5 g/dL (12.0-16.0); LYMPHOCYTES # (AUTO) 3.1 10^3/uL (1.5-3.5); LYMPHOCYTES % (AUTO) 37.7 %; MEAN CORPUSCULAR HEMOGLOBIN 29.1 pg (27.0-31.0); MEAN CORPUSCULAR HGB CONC 32.7 g/dL (32.0-36.0); MEAN PLATELET VOLUME 10.3 fL (7.9-10.8); MONOCYTES # (AUTO) 0.5 10^3/uL (0.0-1.0); MONOCYTES % (AUTO) 6.2 %; NEUTROPHILS # (AUTO) 4.3 10^3/uL (1.5-6.6); NEUTROPHILS % (AUTO) 52.3 %; PLT - PLATELET COUNT 228 10^3/uL (130-450); RED BLOOD COUNT 4.29 10^6/uL (4.20-5.40); RED CELL DISTRIBUTION WIDTH 15.2 % (12.0-15.0); WHITE BLOOD COUNT 8.2 x10^3/uL (4.8-10.8)
--- NOTE | 2018-12-02 12:13 | ED Physician Documentation ---
PD HPI ABD PAIN - Stated complaint Stated Complaint: FEM - Chief complaint Chief Complaint: Abd Pain - History obtained from History obtained from: Patient - History of Present Illness Timing - onset: Other (23-year-old woman with history of ovarian cysts. They seem to be bothering her more since she started Nexplanon about 4 months ago. She has a 6-month-old baby and is breast-feeding. She is had pain over the last 5 days or so that has been increased. Its bilateral pelvic pain. It is somewhat improved with ibuprofen. There is no associated bleeding, discharge, fever. No urinary or bowel complaints. It feels like prior ovarian cysts. She is had a laparoscopy for same a few years ago. 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 Musculoskeletal: Chronic back pain - Past Surgical History Past Surgical History: Yes General: Cholecystectomy /BEHAVIORAL SCHOOL COUNSELORS: Other HEENT: Tonsil/Adenoidectomy - Present Medications Home Medications: Ambulatory Orders Medication Instructions Recorded Confirmed Albuterol Sulf [Ventolin Hfa 2 puffs INH 1-2XD PRN 07/17/18 07/17/18 Inhaler] Amox/Clav 875/125 [Augmentin] 1 each PO Q12H #20 tablet 07/17/18 Hydrocodone/Acetaminophen 1 - 2 each PO Q6H PRN #14 tablet 07/17/18 [Hydrocodon-Acetaminophen 5-325] Hydrocodone/Acetaminophen 1 - 2 each PO Q6H PRN #10 tablet 12/02/18 [Hydrocodon-Acetaminophen 5-325] Meloxicam [Mobic] 7.5 mg PO BID PRN #20 tablet 12/02/18 - Allergies Allergies/Adverse Reactions: Allergies Allergy/AdvReac Type Severity Reaction Status Date / Time tramadol Allergy Intermediate Respiratory Verified 07/17/18 18:28 avocado [Avocado] Allergy Itching Verified 07/17/18 18:28 hydromorphone HCl * AdvReac made pt Verified 07/17/18 18:28 [From Dilaudid] not feel right - Social History Does the pt smoke?: No Smoking Status: Never smoker Does the pt drink ETOH?: No Does the pt have substance abuse?: No - Immunizations Immunizations are current?: Yes - POLST Patient has POLST: No PD ED PE NORMAL - Vitals Vital signs reviewed: Yes - General General: Alert and oriented X 3, No acute distress - Abdomen Abdomen: Normal bowel sounds, Soft, Non tender (Soft and without any abdominal or pelvic tenderness) - Neuro Neuro: Alert and oriented X 3, Normal speech Results - Vitals Vitals: Vital Signs - 24 hr 12/02/18 11:29 Temperature 36.4 C L Heart Rate 61 Respiratory 16 Rate Blood Pressure 115/45 L O2 Saturation 100 Oxygen O2 Source Room air - Labs Labs: Laboratory Tests 12/02/18 12/02/18 12/02/18 11:57 11:57 12:26 WBC 8.2 RBC 4.29 Hgb 12.5 Hct 38.2 MCV 89.0 MCH 29.1 MCHC 32.7 RDW 15.2 H Plt Count 228 MPV 10.3 Neut # (Auto) 4.3 Lymph # (Auto) 3.1 [place] # (Auto) 0.5 Eos # (Auto) 0.3 Baso # (Auto) 0.0 Absolute Nucleated RBC 0.00 Nucleated RBC % 0.0 Sodium 140 Potassium 3.7 Chloride 103 Carbon Dioxide 26 Anion Gap 11.0 BUN 15 Creatinine 0.8 Estimated GFR (MDRD) 106 Glucose 79 Calcium 9.0 Total Bilirubin 0.3 AST 18 ALT 15 Alkaline Phosphatase 112 Total Protein 7.2 Albumin 4.0 Globulin 3.2 Albumin/Globulin Ratio 1.3 Lipase 26 Urine Color YELLOW Urine Clarity CLEAR Urine pH 6.0 Ur Specific [place] 1.025 Urine Protein NEGATIVE Urine Glucose (UA) NEGATIVE Urine Ketones NEGATIVE Urine Occult Blood NEGATIVE Urine Nitrite NEGATIVE Urine Bilirubin NEGATIVE Urine Urobilinogen 0.2 (NORMAL) Ur Leukocyte Esterase NEGATIVE Ur Microscopic Review NOT INDICATED Urine Culture Comments NOT INDICATED Urine HCG, Qual NEGATIVE PD MEDICAL DECISION MAKING - ED course ED course: 23-year-old woman with chronic recurrent pelvic pain. We discussed ultrasonography today, noting that she works nights and relief for her schedule right now she is here in the middle of the night. I offered ultrasonography, but with the understanding that it would delay her emergency department stay by up to 2 hours and probably would not change her disposition today. The only thing that would change her disposition would be a positive test or significantly abnormal lab work. After discussion she declined ultrasonography. Departure - Departure Disposition: 01 Home, Self Care Clinical Impression: Pelvic pain Condition: Good Record reviewed to determine appropriate education?: Yes Instructions: ED Pelvic Pain [facility] Prescriptions: Hydrocodone/Acetaminophen [Hydrocodon-Acetaminophen 5-325] 1 - 2 each PO Q6H PRN #10 tablet PRN Reason: pain Meloxicam [Mobic] 7.5 mg PO BID PRN #20 tablet PRN Reason: Pain Comments: Return for new or worsening symptoms, follow-up with your trolley car mechanic, next available appointment.
[2018-12-02] MEDS ORDERED: MELOXICAM 7.5 MG TABLET PO STA (12:14)
[2018-12-02 12:19] LABS: ALBUMIN/GLOBULIN RATIO 1.3 (1.0-2.2); BILIRUBIN,TOTAL 0.3 mg/dL (0.2-1.0); CREATININE 0.8 mg/dL (0.4-1.0); TOTAL PROTEIN 7.2 g/dL (6.7-8.2)
[2018-12-02 12:37] LABS: BILIRUBIN,URINE NEGATIVE (NEGATIVE); GLUCOSE, URINE (UA) NEGATIVE (NEGATIVE); KETONES,URINE (UA) NEGATIVE (NEGATIVE); LEUKOCYTE ESTERASE, URINE NEGATIVE (NEGATIVE); NITRITE,URINE NEGATIVE (NEGATIVE); OCCULT BLOOD,URINE NEGATIVE (NEGATIVE); PROTEIN,URINE NEGATIVE (NEGATIVE); UROBILINOGEN,URINE 0.2 (NORMAL) E.U./dL (NORMAL)
[2018-12-02 12:38] LABS: CLARITY,URINE CLEAR (CLEAR)
[2018-12-02 12:40] LABS: HCG UR QUAL NEGATIVE
[2018-12-02 13:16] VITALS: BP 118/70
== END 2018-12-02 13:23 | disposition home or self-care (01) ==
LOC: ED 11:26
DX: R10.2 Pelvic and perineal pain (principal); G89.29 Other chronic pain
CPT/HCPCS: 36415; 80053; 81003; 81025; 83690; 85025; 99282; 99283; A9270; 81001; 87086

== ENCOUNTER 2019-02-10 19:26 | Emergency (ER) | payer MEDICAID ==
[2019-02-10 19:59] VITALS: BP 117/68
--- NOTE | 2019-02-10 20:25 | ED Physician Documentation ---
History of Present Illness - Stated complaint Stated Complaint: NIPPLE PAIN - Chief complaint Chief Complaint: Heent - Additonal information Additional information: Pt presents with bilateral nipple pain and cracking over the past week. Her d radha has oral thrush. She is breast feeding but this has become painful. No bleeding, no fever, no redness of the breasts. Pt does not have oral lesions or rash. 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 Musculoskeletal: Chronic back pain - Past Surgical History Past Surgical History: Yes General: Cholecystectomy /BREWERY PUMPER: Other HEENT: Tonsil/Adenoidectomy - Present Medications Home Medications: Ambulatory Orders Medication Instructions Recorded Confirmed Albuterol Sulf [Ventolin Hfa 2 puffs INH 1-2XD PRN 07/17/18 07/17/18 Inhaler] Amox/Clav 875/125 [Augmentin] 1 each PO Q12H #20 tablet 07/17/18 Hydrocodone/Acetaminophen 1 - 2 each PO Q6H PRN #14 tablet 07/17/18 [Hydrocodon-Acetaminophen 5-325] Hydrocodone/Acetaminophen 1 - 2 each PO Q6H PRN #10 tablet 12/02/18 [Hydrocodon-Acetaminophen 5-325] Meloxicam [Mobic] 7.5 mg PO BID PRN #20 tablet 12/02/18 Fluconazole 200 mg PO DAILY #14 tablet 02/10/19 - Allergies Allergies/Adverse Reactions: Allergies Allergy/AdvReac Type Severity Reaction Status Date / Time tramadol Allergy Intermediate Respiratory Verified 02/10/19 19:57 avocado [Avocado] Allergy Itching Verified 02/10/19 19:57 hydromorphone HCl * AdvReac made pt Verified 02/10/19 19:57 [From Dilaudid] not feel right - Social History Does the pt smoke?: No Smoking Status: Never smoker Does the pt drink ETOH?: No Does the pt have substance abuse?: No - Immunizations Immunizations are current?: Yes - POLST Patient has POLST: No PD ED PE NORMAL - Vitals Vital signs reviewed: Yes - General General: Alert and oriented X 3 - HEENT HEENT: Atraumatic, Moist mucous membranes, Pharynx benign - Cardiac Cardiac: RRR - Respiratory Respiratory: No respiratory distress - Derm Derm: Other (Exam performed with Female tech dev ops engineer. Pt has slight cracking of her bilateral nipples. No erythema of the breasts.) Results - Vitals Vitals: Oxygen O2 Source Room air PD MEDICAL DECISION MAKING - ED course ED course: Pt has cracked nipples and breast pain, her daughter has obvious oral thrush. This appears to be candidiasis. No signs of abscess. We will treat with fluconazole. Pt was instructed to follow with her PCP closely and return precautions discussed. Departure - Departure Disposition: 01 Home, Self Care Clinical Impression: Candidiasis of breast Condition: Good Prescriptions: Fluconazole 200 mg PO DAILY #14 tablet Comments: You were seen today for pain in your nipples and breast, this appears to be a a yeast infection, please take the fluconazole as prescribed and follow-up with your primary care provider. This medication is safe to take while breast- feeding. If you develop increasing redness, soreness, fever, or other concerning symptoms, return to the emergency department. Discharge Date/Time: 02/10/19 21:22
[2019-02-10] MEDS ORDERED: FLUCONAZOLE 100 MG TABLET PO STA (20:59)
== END 2019-02-10 21:22 | disposition home or self-care (01) ==
LOC: ED 19:26
DX: B37.2 Candidiasis of skin and nail (principal); O92.13 Cracked nipple associated with lactation
CPT/HCPCS: 99282; 99284; A9270

== ENCOUNTER 2020-05-24 20:16 | Emergency (ER) | payer MEDICAID ==
[2020-05-24] MEDS ORDERED: KETOROLAC 30 MG/ML VIAL IM STA (20:42)
--- NOTE | 2020-05-24 21:03 | XRAY Report ---
PROCEDURE: Ankle 3 View LT INDICATIONS: Trauma TECHNIQUE: 3 views of the ankle were acquired. COMPARISON: None FINDINGS: Bones: No fractures or dislocations. Slight widening of lateral ankle mortise is noted. No suspiciou s bony lesions. Soft tissues: Small amount of tibiotalar joint effusion is seen. Achilles tendon appears normal. IMPRESSION: No gross acute ankle fracture or dislocation. Slight widening of lateral ankle mortise w hich may represent distal syndesmotic injury. Small tibiotalar joint effusion. Reviewed by: Jhon Tate MD on 05/24/2020 9:02 PM PST Approved by: Jhon Tate MD on 05/24/2020 9:02 PM PST Station ID: [id number]
[2020-05-24 21:18] VITALS: BP 123/71
--- NOTE | 2020-05-25 03:46 | ED Physician Documentation ---
History of Present Illness - Stated complaint Stated Complaint: LT FOOT PX - Chief complaint Chief Complaint: Ext Problem - History obtained from History obtained from: Patient - Additonal information Additional information: 24-year-old woman presents with left ankle pain after rolling it around noon today. Initially she was able to bear weight however later in the day she developed gradual onset pain that is now severe, constant, localized to the lateral malleolus and nonradiating, worse with range of motion and with weightbearing. Denies other injury. Denies prior injury. 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: Endometriosis Musculoskeletal: Chronic back pain - Past Surgical History Past Surgical History: Yes General: Cholecystectomy /METROLOGIST: Other HEENT: Tonsil/Adenoidectomy - Present Medications Home Medications: Ambulatory Orders Medication Instructions Recorded Confirmed Bcp 05/24/20 Ibuprofen [Motrin] 600 mg PO Q6H PRN #30 tab 05/24/20 - Allergies Allergies/Adverse Reactions: Allergies Allergy/AdvReac Type Severity Reaction Status Date / Time tramadol Allergy Intermediate Respiratory Verified 05/24/20 20:19 avocado [Avocado] Allergy Itching Verified 05/24/20 20:19 hydromorphone HCl * AdvReac made pt Verified 05/24/20 20:19 [From Dilaudid] not feel right - Social History Does the pt smoke?: No Smoking Status: Never smoker Does the pt drink ETOH?: No Does the pt have substance abuse?: No - Immunizations Immunizations are current?: Yes - POLST Patient has POLST: No PD ED PE NORMAL - Vitals Vital signs reviewed: Yes - General General: Alert and oriented X 3, No acute distress, Well developed/nourished - HEENT HEENT: Atraumatic, PERRL, EOMI - Derm Derm: Normal color, Warm and dry - Extremities Extremities: Other (Left lateral malleolus tender to palpation. Nontender at fifth metatarsal or medial malleolus. Mild swelling to area just anterior to lateral malleolus. Left warp bleaching vat tender with range of motion. 2+ DP and PT pulses. Normal strength and sensation.) Results - Vitals Vitals: Vital Signs - 24 hr 05/24/20 05/24/20 20:17 21:17 Temperature 36.7 C 36.5 C Heart Rate 104 H 69 Respiratory 18 16 Rate Blood Pressure 143/75 H 123/71 O2 Saturation 96 100 Oxygen O2 Source Room air PD MEDICAL DECISION MAKING - ED course ED course: 24-year-old woman presents with apparent ankle sprain. X-ray does not show any obvious fractures. Patient placed in posterior splint and given crutches. She will follow up with orthopedics in 1 week. Strict return precautions given. Departure - Departure Disposition: 01 Home, Self Care Clinical Impression: Ankle sprain Condition: Good Instructions: ED RICE Follow-Up: Jacinto Pugh MD [Provider Admit Priv/Credential] - Prescriptions: Ibuprofen [Motrin] 600 mg PO Q6H PRN #30 tab PRN Reason: Pain Comments: You are seen in the emergency department for ankle pain. It looks like he sprained her ankle but you need to have a follow-up with orthopedics in 1 week to make sure that the x-rays are repeated and the ankle is reexamined. Take ibuprofen 600 mg every 6 hours as needed for pain. Return to the emergency department if you have any new or worsening symptoms in the meantime. Discharge Date/Time: 05/24/20 21:40
== END 2020-05-24 21:40 | disposition home or self-care (01) ==
LOC: ED 20:16
DX: S93.402A Sprain of unspecified ligament of left ankle, initial encounter (principal); X50.1XXA Overexertion from prolonged static or awkward postures, initial encounter; Y93.01 Activity, walking, marching and hiking; Y92.039 Unspecified place in apartment as the place of occurrence of the external cause
CPT/HCPCS: 96372; 99283

== ENCOUNTER 2020-05-31 07:00 | Outpatient (CLI) | payer MEDICAID ==
--- NOTE | 2020-05-31 11:57 | XRAY Report ---
PROCEDURE: Ankle 3 View LT INDICATIONS: LEFT ANKLE PAIN TECHNIQUE: 4 views of the ankle were acquired. COMPARISON: 05/24/2020 ankle x-rays. FINDINGS: Bones: No fractures or dislocations. Ankle mortise is normally aligned. No suspicious bony lesions . Soft tissues: No tibiotalar joint effusion. Achilles tendon appears normal. IMPRESSION: No acute fracture. No osseous lesion. If symptoms and/or clinical suspicion for patholog y continue, further assessment with repeat plain films, or advanced imaging (e.g., CT, MRI, or bone s can) is recommended for further assessment. Reviewed by: Sarah Aguilar MD on 05/31/2020 11:[address] [facility] Approved by: Sarah Aguilar MD on 05/31/2020 11:[address] [facility] Station ID: [id number]
== END 2020-05-31 23:59 | disposition home or self-care (01) ==
LOC: DI.N 07:00
PROVIDERS: ATTEND Physician Assistant
DX: M25.572 Pain in left ankle and joints of left foot (principal)

== ENCOUNTER 2020-07-20 14:04 | Emergency (ER) | payer MEDICAID ==
--- OUTSIDE RECORDS SUMMARY | 2020-07-20 14:10 | EXTERNAL MEDICAL SUMMARY RPT | Continuity of Care Document ---
:1995 Demographics Phone Unavailable Preferred Language [place] Island[place] Marital Status Unknown Judaism Affiliation Unknown Race Unknown Ethnic Group Unknown Author Organization [place] Address [address] [phone] Phone Care Team Providers Name Role Phone Newlon Unavailable Unavailable Medications date description facility 20200530 Omeprazole 20 MG Enteric Coated Capsule [facility] Procedures date description facility 20200530 [facility] Vital Signs date measurement value source 20200530 weight_standard 72.58 lb 20200530 weight_metric 32.92 kg 20200530 respiration_rate 18 /min 20200530 heart_rate 62 /min 20200530 BP_systolic 114 mm[Hg] 20200530 BP_diastolic 84 mm[Hg] Social History date description facility [id number]
[2020-07-20 14:35] LABS: BILIRUBIN,URINE NEGATIVE (NEGATIVE); GLUCOSE, URINE (UA) NEGATIVE (NEGATIVE); KETONES,URINE (UA) TRACE mg/dL (NEGATIVE); LEUKOCYTE ESTERASE, URINE NEGATIVE (NEGATIVE); NITRITE,URINE NEGATIVE (NEGATIVE); OCCULT BLOOD,URINE LARGE (NEGATIVE); PROTEIN,URINE NEGATIVE (NEGATIVE); UROBILINOGEN,URINE 0.2 (NORMAL) E.U./dL (NORMAL)
[2020-07-20 14:37] LABS: BASOPHILS % (AUTO) 0.2 %; EOSINOPHILS # (AUTO) 0.1 10^3/uL (0.0-0.7); EOSINOPHILS % (AUTO) 0.6 %; HGB - HEMOGLOBIN 13.3 g/dL (12.0-16.0); LYMPHOCYTES # (AUTO) 3.1 10^3/uL (1.5-3.5); LYMPHOCYTES % (AUTO) 30.3 %; MEAN CORPUSCULAR HEMOGLOBIN 30.6 pg (27.0-31.0); MEAN CORPUSCULAR HGB CONC 33.3 g/dL (32.0-36.0); MEAN PLATELET VOLUME 10.7 fL (7.9-10.8); MONOCYTES # (AUTO) 0.6 10^3/uL (0.0-1.0); MONOCYTES % (AUTO) 5.9 %; NEUTROPHILS # (AUTO) 6.5 10^3/uL (1.5-6.6); NEUTROPHILS % (AUTO) 62.8 %; PLT - PLATELET COUNT 239 10^3/uL (130-450); RED BLOOD COUNT 4.35 10^6/uL (4.20-5.40); RED CELL DISTRIBUTION WIDTH 14.4 % (12.0-15.0); WHITE BLOOD COUNT 10.3 x10^3/uL (4.8-10.8)
[2020-07-20 14:37] LABS: CLARITY,URINE CLEAR (CLEAR)
[2020-07-20 14:49] LABS: ALBUMIN 4.6 g/dL (3.2-5.5); ALBUMIN/GLOBULIN RATIO 1.2 (1.0-2.2); BILIRUBIN,TOTAL 0.9 mg/dL (0.2-1.0); CALCIUM 9.1 mg/dL (8.5-10.3); CREATININE 0.8 mg/dL (0.4-1.0); POTASSIUM 3.4 mmol/L (3.5-5.0); TOTAL PROTEIN 8.3 g/dL (6.7-8.2)
[2020-07-20 14:50] LABS: BACTERIA,URINE None Seen /HPF (None Seen); MUCUS,URINE Few Strands; SQUAMOUS EPITHELIAL CELL,UR FEW Squamous (<= Few); WBC,URINE 0-3 /HPF (0-5)
--- NOTE | 2020-07-20 15:05 | ED Physician Documentation ---
PD HPI ABD PAIN - Stated complaint Stated Complaint: FEMALE 4-5 WKS - Chief complaint Chief Complaint: Abd Pain - History obtained from History obtained from: Patient - Additional information Additional information: 25-year-old woman with LMP of June 24. She feels like she is late and like she might be miscarrying. She took several positive test at home over this week. Of note they were all the same batch and all very faint. She is worried because she is miscarried before and has had to have a D&C before. She is spotting. No cramps. 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 Musculoskeletal: Chronic back pain - Past Surgical History Past Surgical History: Yes General: Cholecystectomy /BILLING SPEC: Other HEENT: Tonsil/Adenoidectomy - Present Medications Home Medications: Ambulatory Orders Medication Instructions Recorded Confirmed No Known Home Medications 07/20/20 07/20/20 - Allergies Allergies/Adverse Reactions: Allergies Allergy/AdvReac Type Severity Reaction Status Date / Time tramadol Allergy Intermediate Respiratory Verified 07/20/20 14:12 avocado [Avocado] Allergy Itching Verified 07/20/20 14:12 hydromorphone HCl * AdvReac made pt Verified 07/20/20 14:12 [From Dilaudid] not feel right - Social History Does the pt smoke?: No Smoking Status: Never smoker Does the pt drink ETOH?: No Does the pt have substance abuse?: No - Immunizations Immunizations are current?: Yes - POLST Patient has POLST: No PD ED PE NORMAL - Vitals Vital signs reviewed: Yes - General General: Alert and oriented X 3, No acute distress - Abdomen Abdomen: Soft, Non tender - Psych Psych: Normal mood, Normal affect Results - Vitals Vitals: Vital Signs - 24 hr 07/20/20 07/20/20 14:13 15:16 Temperature 36.8 C 36.6 C Heart Rate 67 75 Respiratory 18 16 Rate Blood Pressure 152/66 H 148/72 H O2 Saturation 99 100 Oxygen O2 Source Room air - Labs Labs: Laboratory Tests 07/20/20 07/20/20 07/20/20 14:20 14:20 14:30 WBC 10.3 RBC 4.35 Hgb 13.3 Hct 40.0 MCV 92.0 MCH 30.6 MCHC 33.3 RDW 14.4 Plt Count 239 MPV 10.7 Neut # (Auto) 6.5 Lymph # (Auto) 3.1 [place] # (Auto) 0.6 Eos # (Auto) 0.1 Baso # (Auto) 0.0 Absolute Nucleated RBC 0.00 Nucleated RBC % 0.0 Sodium Potassium Chloride Carbon Dioxide Anion Gap BUN Creatinine Estimated GFR (MDRD) Glucose Calcium Total Bilirubin AST ALT Alkaline Phosphatase Total Protein Albumin Globulin Albumin/Globulin Ratio Lipase HCG, Quant Urine Color YELLOW Urine Clarity CLEAR Urine pH 6.0 Ur Specific [place] 1.025 Urine Protein NEGATIVE Urine Glucose (UA) NEGATIVE Urine Ketones TRACE Urine Occult Blood LARGE H Urine Nitrite NEGATIVE Urine Bilirubin NEGATIVE Urine Urobilinogen 0.2 (NORMAL) Ur Leukocyte Esterase NEGATIVE Urine RBC 6-10 H Urine WBC 0-3 Ur Squamous Epith Cells FEW Squamous Urine Bacteria None Seen Urine Mucus Few Strands Ur Microscopic Review INDICATED Urine Culture Comments NOT INDICATED Urine HCG, Qual NEGATIVE 07/20/20 07/20/20 14:30 14:30 WBC RBC Hgb Hct MCV MCH MCHC RDW Plt Count MPV Neut # (Auto) Lymph # (Auto) [place] # (Auto) Eos # (Auto) Baso # (Auto) Absolute Nucleated RBC Nucleated RBC % Sodium 137 Potassium 3.4 L Chloride 102 Carbon Dioxide 26 Anion Gap 9.0 BUN 12 Creatinine 0.8 Estimated GFR (MDRD) 104 Glucose 85 Calcium 9.1 Total Bilirubin 0.9 AST 23 ALT 20 Alkaline Phosphatase 82 Total Protein 8.3 H Albumin 4.6 Globulin 3.7 Albumin/Globulin Ratio 1.2 Lipase 20 L HCG, Quant < 0.60 Urine Color Urine Clarity Urine pH Ur Specific [place] Urine Protein Urine Glucose (UA) Urine Ketones Urine Occult Blood Urine Nitrite Urine Bilirubin Urine Urobilinogen Ur Leukocyte Esterase Urine RBC Urine WBC Ur Squamous Epith Cells Urine Bacteria Urine Mucus Ur Microscopic Review Urine Culture Comments Urine HCG, Qual PD MEDICAL DECISION MAKING - ED course ED course: 25yo woman who presents with vaginal spotting, found not be here, both blood and urine contradicting home tests Departure - Departure Disposition: 01 Home, Self Care Clinical Impression: Vaginal bleeding Condition: Good Record reviewed to determine appropriate education?: Yes Comments: Both urine and blood tests were normal. Return if worsening. Discharge Date/Time: 07/20/20 15:17
[2020-07-20 15:11] LABS: HCG UR QUAL NEGATIVE
--- OUTSIDE RECORDS SUMMARY | 2020-07-20 15:12 | EXTERNAL MEDICAL SUMMARY RPT | Continuity of Care Document ---
:1995 Demographics Phone Unavailable Preferred Language [place] Marital Status Unknown Pentecostal Affiliation Unknown Race Unknown Ethnic Group Unknown Author Organization [place] Address [address] [phone] Phone Care Team Providers Name Role Phone Harriet Mendez Unavailable Unavailable Medications date description facility 20200530 Omeprazole 20 MG Enteric Coated Capsule [facility] Procedures date description facility 20200530 [facility] Vital Signs date measurement value source 20200530 weight_standard 72.58 lb 20200530 weight_metric 32.92 kg 20200530 respiration_rate 18 /min 20200530 heart_rate 62 /min 20200530 BP_systolic 114 mm[Hg] 20200530 BP_diastolic 84 mm[Hg] Social History date description facility [id number]
[2020-07-20 15:17] VITALS: BP 148/72
== END 2020-07-20 15:17 | disposition home or self-care (01) ==
LOC: ED 14:04
DX: N93.9 Abnormal uterine and vaginal bleeding, unspecified (principal)
CPT/HCPCS: 36415; 80053; 81001; 81003; 81025; 83690; 84702; 85025; 87086; 99283